=== PATIENT | female | born 1975 | race Caucasian/White ===

== ENCOUNTER 2018-08-27 08:01 | Inpatient (IN) | payer OTHER ==
[~2018-08-27 08:01] MED LIST: ceFAZolin 2 GM/50 ML 2 GM/50 ML BAG IV ONE
--- NOTE | 2018-08-27 08:13 | ANESTHESIA ---
Pre-Anesthesia VS, & Labs - Diagnosis cystocele - Procedure Vaginal anterior repair- possible cystoscopy Vital Signs: Last Vital Signs Temp 36.6 C 08/27/18 08:12 Pulse 66 08/27/18 08:12 Resp 16 08/27/18 08:12 BP 118/67 08/27/18 08:12 Pulse Ox 100 08/27/18 08:12 Weight (kg) 87.9 kg Weight (kg) 87.9 kg - NPO >8 hours - Is Patient ?: No - Lab Results Lab results reviewed: Yes Home Medications and Allergies Home Medications: Ambulatory Orders Loratadine [Claritin] 10 mg PO DAILY 08/16/18 Loratadine [Claritin] 10 mg PO DAILY 08/16/18 Allergies/Adverse Reactions: Allergies Allergy/AdvReac Type Severity Reaction Status Date / Time No Known Drug Allergies Allergy Verified 08/16/18 10:21 Anes History & Medical History - Anesthetic History Anesthesia Complications: reports: No previous complications Family history of Anesthesia Complications: Denies Family history of Malignant Hyperthermia: Denies - Medical History Cardiovascular: reports: None Pulmonary: reports: None Gastrointestinal: reports: None Urinary: reports: Other Musculoskeletal: reports: None Endocrine/Autoimmune: reports: None Skin: reports: None - Surgical History Gynecologic: Endometrial ablation, Breast implants Exam General: Alert, Oriented x3, Cooperative Dental: WNL Mouth Opening: Greater than 4 Fingerbreadths Neck Mobility: Normal Mallampati classification: I Thyromental Distance: 4-6 cm Respiratory: Lungs clear, Normal breath sounds Cardiovascular: Regular rate Neurological: Normal speech Mental/Cognitive Status: Alert/Oriented X3, Normal for patient Cognitive Status: Within normal limits Plan Anesthesia Type: General Consent for Procedure(s) Verified and Reviewed: No Code Status: Attempt Resuscitation ASA classification: 1-Healthy patient Is this case an emergency?: No
[2018-08-27 08:19] LABS: HCG UR QUAL NEGATIVE
[2018-08-27] MEDS ORDERED: LACTATED RINGERS 1,000 ML IV ONE ×2 (08:31→12:08)
[2018-08-27] MEDS ORDERED: LIDOCAINE 1% 50 ML MDV ONE (09:54)
[2018-08-27] MEDS ORDERED: LIDOCAINE 1%-EPI 1:100000 30 ML MDV ONE (09:56)
[2018-08-27] MEDS ORDERED: LIDOCAINE 1%-EPI 1:100000 30 ML MDV SUBQ ONE (10:35)
[2018-08-27] MEDS ORDERED: KETOROLAC 30 MG/ML VIAL IVP ONE (10:41)
[2018-08-27] MEDS ORDERED: fentaNYL 250 MCG/5 ML VIAL IVP ONE (10:41)
[2018-08-27] MEDS ORDERED: ONDANSETRON 4 MG/2 ML VIAL IVP ONE (10:41)
[2018-08-27] MEDS ORDERED: LIDOCAINE-MPF 2% 5 ML VIAL IM ONE (10:41)
[2018-08-27] MEDS ORDERED: ceFAZolin 2 GM/50 ML 2 GM/50 ML BAG IV ONE (10:41)
[2018-08-27] MEDS ORDERED: PROPOFOL 200 MG/20 ML VIAL IVP ONE (10:41)
[2018-08-27] MEDS ORDERED: ESTROGENS, CONJUGATED CREAM 30 GM TUBE VG ONE (10:47)
[2018-08-27] MEDS ORDERED: ESTROGENS, CONJUGATED CREAM 30 GM TUBE ONE (10:49)
[2018-08-27] MEDS ORDERED: MORPHINE 10 MG/ML VIAL IVP PRN (11:59)
[2018-08-27] MEDS ORDERED: ONDANSETRON 4 MG/2 ML VIAL IVP PRN (11:59)
[2018-08-27] MEDS ORDERED: HYDROcod/ACETAM 5/325 MG TABLET PO PRN (12:01)
--- NOTE | 2018-08-27 12:05 | OPERATIVE REPORT ---
Operative Report - General Admit Date: 08/27/18 Procedure Date: 08/27/18 Planned Procedure: Anterior vaginal repair Pre-Op Diagnosis: Cystocele Procedure Performed: Anterior vaginal repair Post Op Diagnosis: MICHELLE - Procedure Note Primary Surgeon: Dr. Jossy Segundo Secondary Surgeon: Dr. Cb Banks Anesthesia Provider: Gerald Baez Anesthesia Technique: General ET tube Pathology: None IV Fluids (mL): 950 Estimated Blood Loss (mL): 300 Urine Output (mL): 300 Drain/Tube Type: Other (Vaginal packing in place) Complications: None - Other Other Information/Narrative: Indication: The patient is a 42-year-old 4 para 3 abortus 1 female here for anterior vaginal repair for management of bothersome vaginal bulge and pressure secondary to a stage II-III cystocele. Her symptoms are especially bothersome after prolonged standing and exercise (squats). She denies any leaka ge of urine or stool problems. She denies any splinting or urinary retention. She also has a mild, stage I rectocele and no uterine prolapse. She is status post endometrial ablation and has not had any bleeding since then.The alternatives for mgmt of her symptoms were discussed, and the patient desired to proceed with a hysterectomy. Risks, benefits, limitations, alternatives, and expectations or surgery were discussed, and the consent was reviewed and signed prior to the date of surgery. Findings: Exam under anesthesia: Uterus anteverted, 7 wks, with no adnexal masses palpable. A stage II-III cystocele was noted. Procedure: The patient was taken to the operating room, where general endotracheal anesthesia was administered without difficulty. She was then positioned into high dorsal lithotomy with her lower extremities in yellow-fin stirrups. Exam under anesthesia was then performed with the findings as noted above. Perineum and vagina were then prepped and draped in sterile fashion, and a zambrano catheter was placed. Time out was then performed. A sterile weight speculum placed. An Allis clamp was then placed at the mid urethral area of the anterior vaginal wall. A second Allis clamp was placed at the posterior aspect of the largest portion of prolapsed cystocele tissue. This ended up being approximately 2 cm anterior to the anterior lip of the cervix. These Allis clamps marked the anterior and posterior aspects of the vaginal incision and anterior repair. 1% lidocaine with epinephrine was then injected submucosally along the tract of the incision and laterally off to the sides. A vertical skin incision was then made with a 15 blade scalpel, dissecting through the vaginal mucosal tissue. The lateral aspects of the incision were grasped with Allis Samir clamps. Starting with the patient's right side, the underlying cystocele sac was dissected off the vaginal mucosa using a combination of sharp and blunt dissection. Using the button breaker operator's finger and a moistened sponge, the cystocele sac was bluntly dissected off the mucosa and until the lateral fascia was visualized. This step was then performed on the patient's left side. Some bleeding was noted on the patient's right side. Bovie cautery was attempted here for hemostasis; however, this was not effective. A [id number]-fh-punpt suture was also placed which seemed to slow the bleeding. Serial horizontal mattress sutures of 0 Vicryl were then placed plicating the lateral fascia to the midline and reducing the cystocele superiorly and anteriorly. Approximately 6 sutures were placed, then tied down. 3 areas of residual defect were then reapproximated, also using 0 Vicryl with a horizontal mattress suture. The redundant anterior vaginal mucosa was then trimmed just below the levels of the Allis clamps. The vaginal mucosa was then reapproximated using serial [id number] sutures. The mid to posterior aspect of this closure was felt to contain too much residual tissue such that it prolapsed to the vaginal introitus. Therefore, the decision was made to further trim this area down a bit more. Here, an additional 1 cm of tissue was resected at the middle aspect, then re-closed with [id number] sutures of 0 Vicryl. Hemostasis was achieved and the prolapsed tissue was much improved. The vagina was then packed with a Premarin moistened gauze. The patient was then replaced supine, awakened, extubated, and transferred to the PACU in stable condition. There were no complications. Sponge, lap, and needle count were correct x 3.
[2018-08-27] MEDS: KETOROLAC 30 MG/ML VIAL IVP SCH ×3 (13:16→23:59)
[2018-08-27] MEDS: LACTATED RINGERS 1,000 ML IV SCH ×2 (13:17→23:05)
[2018-08-27] MEDS: DOCUSATE SODIUM 100 MG CAPSULE PO SCH (21:02)
[2018-08-28 05:32] LABS: BASOPHILS # (AUTO) 0.1 10^3/uL (0.0-0.1); BASOPHILS % (AUTO) 0.7 %; EOSINOPHILS # (AUTO) 0.3 10^3/uL (0.0-0.7); EOSINOPHILS % (AUTO) 3.6 %; HGB - HEMOGLOBIN 12.1 g/dL (12.0-16.0); LYMPHOCYTES # (AUTO) 1.5 10^3/uL (1.5-3.5); LYMPHOCYTES % (AUTO) 18.7 %; MEAN CORPUSCULAR HEMOGLOBIN 29.7 pg (27.0-31.0); MEAN CORPUSCULAR HGB CONC 32.8 g/dL (32.0-36.0); MEAN CORPUSCULAR VOLUME 90.6 fL (81.0-99.0); MEAN PLATELET VOLUME 7.5 fL (7.9-10.8); MONOCYTES # (AUTO) 0.5 10^3/uL (0.0-1.0); MONOCYTES % (AUTO) 6.4 %; NEUTROPHILS # (AUTO) 5.8 10^3/uL (1.5-6.6); NEUTROPHILS % (AUTO) 70.6 %; PLT - PLATELET COUNT 189 10^3/uL (130-450); RED BLOOD COUNT 4.07 10^6/uL (4.20-5.40); RED CELL DISTRIBUTION WIDTH 13.6 % (12.0-15.0); WHITE BLOOD COUNT 8.2 x10^3/uL (4.8-10.8)
--- NOTE | 2018-08-28 06:39 | DISCHARGE SUMMARY ---
"Discharge Summary Admit Date: 08/27/18 Discharge Date: 08/28/18 Discharging Provider: Dr. Jossy Segundo Code Status: Attempt Resuscitation Condition at Discharge: Good Discharge Disposition: 01 Home, Self Care - DIAGNOSES Admission Diagnoses: Cystocele Discharge Diagnoses with Status of Each Condition: Cystocele - now s/p anterior vaginal repair - HPI History of Present Illness: 42 yo female with symptomatic anterior vaginal prolapse, desiring surgical mgmt. See admission H&P for details. - CONSULTS | PROCEDURES Consultations: None Procedures: Anterior vaginal repair - HOSPITAL COURSE Hospital Course: After an uncomplicated surgery, the patient was admitted to the PACU then the connolly in stable condition. She had no acute events overnight. Pain was well- managed with toradol. Vital signs were stable and nml. On POD #1, vaginal packing was removed followed by zambrano catheter. She was discharged home once ambulating, tolerating a regular diet, voiding freely, and controlling pain with oral pain meds. - ALLERGIES Allergies/Adverse Reactions: Allergies Allergy/AdvReac Type Severity Reaction Status Date / Time No Known Drug Allergies Allergy Verified 08/16/18 10:21 - MEDICATIONS Home Medications: Ambulatory Orders Medication Instructions Recorded Confirmed Loratadine [Claritin] 10 mg PO DAILY 08/16/18 08/27/18 Home Medications Other | Comments: Patient has prescriptions for: Motrin 800 mg po q 8 hrs Vicodin 5/325 mg 1 tab po q 4 hrs OR 2 tabs po q 6 hrs Surfak 240 mg po bid prn constipation - PHYSICAL EXAM AT DISCHARGE General Appearance: positive: No acute distress, Alert Respiratory: positive: Other (Deferred - no concerns and no hx of pulmonary ds) Cardiovascular: positive: Other (Deferred; no concerns or history of cardiac ds) Abdomen: positive: Non-tender, No distention Skin: positive: Color nml Physical Exam Other/Comments: Vaginal packing removed - moderately saturated with dark blood; no active bleeding noted after removal. - LABS Result Diagrams: 08/28/18 04:50 - FOLLOW UP Follow Up: [id number] at 0830 at [facility] - TIME SPENT Time Spent in Discharge (Minutes): 15"
[2018-08-28] MEDS ORDERED: SODIUM CHLORIDE FLUSH 0.9% 10 ML SYRINGE ONE (06:41)
[2018-08-28] MEDS: KETOROLAC 30 MG/ML VIAL IVP SCH (06:42)
--- NOTE | 2018-08-28 06:44 | Discharge Plan ---
Discharge Plan Disposition: 01 Home, Self Care Condition: Good Diet: Regular Activity Restrictions: See handout Shower Restrictions: No Driving Restrictions: Yes (May drive when pain-free off narcotics) Weight Bearing: Full Weight No Smoking: If you smoke, Please STOP! Call for help. Follow-up with: Jossy Segundo MD [Primary Care Provider] -
[2018-08-28 07:59] VITALS: BP 101/58
[2018-08-28] MEDS ORDERED: LORATADINE 10 MG TABLET PO SCH (09:00)
[2018-08-28] MEDS: DOCUSATE SODIUM 100 MG CAPSULE PO SCH (09:29)
--- NOTE | 2018-08-30 07:39 | PROVIDER PROGRESS NOTE ---
Subjective - Prog Note Date Prog Note Date: 08/30/18 Prog Note Time: 07:37 - Subjective Subjective: Delayed entry - required to enter a "96 hr cert. Verifying anticipate length of stay will be less than 96 hrs. Objective - Vital Signs/Intake & Output Intake & Output: Intake & Output 08/27/18 08/28/18 08/29/18 08/30/18 23:59 23:59 23:59 23:59 Intake Total 4535 1886 Output Total 2675 1800 Balance 1860 86 - Lab Results Fish Bones: 08/28/18 04:50
== END 2018-08-28 09:38 | disposition home or self-care (01) | DRG 748 ==
LOC: MS2 08:01
PROVIDERS: ADMIT Obstetrics & Gynecology; ATTEND Obstetrics & Gynecology
PROC: 0JQC0ZZ Repair Pelvic Region Subcutaneous Tissue and Fascia, Open Approach (ICD-10-PCS; principal; 2018-08-27 09:15)
DX: N81.10 Cystocele, unspecified (principal); N81.6 Rectocele
CPT/HCPCS: 36415; 81025; 85025

== ENCOUNTER 2019-08-08 20:15 | Emergency (ER) | payer OTHER ==
--- NOTE | 2019-08-08 20:41 | ED Physician Documentation ---
PD HPI UPPER EXT INJURY - Stated complaint Stated Complaint: L WRIST INJ - Chief complaint Chief Complaint: Ext Problem - History obtained from History obtained from: Patient - History of Present Illness Location: Left, Wrist Type of injury: Fall Where injury occurred: Home Timing - onset: How many hours ago (1) Timing - details: Abrupt onset Pain level now: 4 Improved by: Rest Worsened by: Moving, Palpating Associated symptoms: Swelling. No: Weakness, Numbness, Tingling, Discolored Contributing factors: No: Anticoagulated Similar symptoms before: No: Has not had sx before Recently seen: Not recently seen - Additonal information Additional information: fell off of hoverboard 1 hour ago, sustaining left wrist injury and c/o left wrist pain. she is right-hand dominant. 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, Breast implants - Present Medications Home Medications: Ambulatory Orders Medication Instructions Recorded Confirmed Loratadine [Claritin] 10 mg PO DAILY 08/16/18 08/27/18 - Allergies Allergies/Adverse Reactions: Allergies Allergy/AdvReac Type Severity Reaction Status Date / Time No Known Drug Allergies Allergy Verified 08/08/19 20:22 PD ED PE NORMAL - Vitals Vital signs reviewed: Yes - General General: Alert and oriented X 3, No acute distress, Well developed/nourished - Derm Derm: Normal color, Warm and dry, No rash PD ED PE EXPANDED - Extremities Extremities: Deformity, Tenderness, Limited ROM, Swelling, Left wrist, Other (left hand is NVI ) Results - Vitals Vitals: Oxygen O2 Source Room air - Rads (name of study) left wrist xrays Radiology: Prelim report reviewed, See rad report Procedures - Splint (location) Upper extremity left Splint applied by: Tech Type of splint: Fiberglass, Short arm, Thumb spica Other: Patient tolerated well, No complications, Neurovascular intact, Sling provided PD MEDICAL DECISION MAKING - ED course Complexity details: reviewed results, re-evaluated patient, considered differential, d/w patient Departure - Departure Disposition: 01 Home, Self Care Clinical Impression: Distal radius fracture, left Condition: Good Instructions: ED Sling, ED Splint Care Fiberglass, ED Fx Wrist General Follow-Up: [facility] Shipman [Provider Group] Terell Stewart MD [Provider Admit Priv/Credential] - Comments: Follow up within 3-5 days Discharge Date/Time: 08/08/19 21:53
--- NOTE | 2019-08-08 21:06 | XRAY Report ---
Reason: ER... Procedure Date: 08/08/2019 Accession Number: [id number] / [id number] Procedure: XR - Wrist 3 View LT CPT Code: Final Report FULL RESULT: EXAM: LEFT WRIST RADIOGRAPHY EXAM DATE: 08/08/2019 08:34 PM. CLINICAL HISTORY: ER. . COMPARISON: None. TECHNIQUE: 3 views. FINDINGS: Bones: Questionable nondisplaced extra-articular fracture of the distal radial metaphysis, as there is a subtle transverse lucency and some disruption of the trabeculae. Seen on AP and oblique images only. No other fractures. Joints: Normal. No subluxations. Soft Tissues: Mild soft tissue swelling around the wrist. IMPRESSION: Questionable nondisplaced fracture through the distal radial metaphysis. Consider immobilization and follow-up imaging. [facility]
[2019-08-08 21:57] VITALS: BP 123/76
== END 2019-08-08 21:53 | disposition home or self-care (01) ==
LOC: ED 20:15
DX: S52.592A Other fractures of lower end of left radius, initial encounter for closed fracture (principal); V00.181A Fall from other rolling-type pedestrian conveyance, initial encounter; Y93.89 Activity, other specified; Y92.009 Unspecified place in unspecified non-institutional (private) residence as the place of occurrence of the external cause
CPT/HCPCS: 29125; 99282; 99283